=== PATIENT | female | born 1955 ===

== ENCOUNTER 2020-09-15 07:23 | Day surgery (SDC) | payer OTHER ==
[~2020-09-15 07:23] MED LIST: COZAAR50 MG PO; CRESTOR10 MG PO; SYNTHROID88 MCG PO; TENORMIN25 MG PO; VITAMIN D310 MCG/1 M PO
== END 2020-09-15 17:20 | disposition home or self-care (01) ==
LOC: CIR.AMB 07:23
PROVIDERS: ATTEND Orthopaedic Surgery
DX: S52.572A Other intraarticular fracture of lower end of left radius, initial encounter for closed fracture (principal); Z20.828 Contact with and (suspected) exposure to other viral communicable diseases; M24.532 Contracture, left wrist
CPT/HCPCS: 25609; 20902; 25118; 25280; C1776